=== PATIENT | female | born 1970 ===

== ENCOUNTER 2018-06-08 18:03 | Emergency (ER) | payer SELFPAY ==
[2018-06-08] MEDS ORDERED: Sodium Chloride 0.9% 1,000 ML IV STA (18:45)
[2018-06-08 18:47] LABS: BASO # 0.1 K/uL (0.0-0.2); BASO % 1.2 % (0.0-2.0); EOS # 0.1 K/uL (0.0-0.7); EOS % 2.1 % (0.0-4.0); HEMOGLOBIN 12.9 g/dL (11.0-16.0); LYMPH # 2.5 K/uL (1.0-4.3); LYMPH % 35.1 % (20.0-40.0); MEAN CELL VOLUME 82.2 fL (81.0-99.0); MEAN CORPUSCULAR HEMOGLOBIN 26.9 pg (27.0-31.0); MEAN CORPUSCULAR HGB CONC 32.8 g/dL (33.0-37.0); MEAN PLATELET VOLUME 7.6 fL (7.2-11.7); MONO # 0.5 K/uL (0.0-0.8); MONO % 6.8 % (0.0-10.0); NEUT # 3.9 K/uL (1.8-7.0); NEUT % 54.8 % (50.0-75.0); RBC 4.81 Mil/uL (3.80-5.20); RED CELL DISTRIBUTION WIDTH 13.9 % (11.5-14.5); WHITE BLOOD COUNT 7.2 K/uL (4.8-10.8)
--- NOTE | 2018-06-08 18:47 | C.PDOC ---
History Of Present Illness 47 y/o F c PMHx thyroid disease, remote history of ovarian cystectomy and C- section p/w abdominal pain x 3 hours. Pain is epigastric, severe, constant, recently began radiating to L shoulder. Reports 1 episode of nonbloody vomiting. Normal BM this morning, no bowel movement or flatus since then. Normal urination. Denies fever, chest pain, dyspnea. Time Seen by Provider: 06/08/18 18:38 Chief Complaint (Nursing): Abdominal Pain Past Medical History Vital Signs: Last Vital Signs Temp 98.4 F 06/08/18 18:17 Pulse 68 06/08/18 18:17 Resp 20 06/08/18 18:17 BP 125/60 06/08/18 18:17 Pulse Ox 100 06/08/18 18:17 - Medical History PMH: Arthritis, Hypothyroidism Denies: Chronic Kidney Disease Family History: States: Unknown Family Hx - Social History Hx Alcohol Use: No Hx Substance Use: No - Immunization History Hx Tetanus Toxoid Vaccination: Yes Hx Influenza Vaccination: Yes Hx Pneumococcal Vaccination: Yes Review Of Systems Except As Marked, All Systems Reviewed And Found Negative. Constitutional: Negative for: Fever Cardiovascular: Negative for: Chest Pain Physical Exam - Physical Exam Additional Physical Exam Comments: Constitutional: No acute distress. Head: Normocephalic. Atraumatic. Eyes: PERRL. ENT: Moist mucous membranes. Neck: Supple. Cardiovascular: Regular rate. Radial pulse 2+ bilaterally. Chest: No tenderness. Respiratory: Clear to auscultation bilaterally. GI: Soft. Epigiastrc/LUQ tenderness with guarding. Back: No CVA tenderness. Musculoskeletal: No tenderness or swelling of extremities. Skin: No rash. Neurologic: Alert, no focal deficit. ED Course And Treatment - Laboratory Results Result Diagrams: 06/08/18 19:17 06/08/18 19:31 O2 Sat by Pulse Oximetry: 100 - CT Scan/US CT A/P Other Rad Studies (CT/US): Read By Radiologist, Radiology Report Reviewed CT/US Interpretation: EXAM: CT Abdomen and Pelvis with IV contrast. CLINICAL HISTORY: Abdominal pain and vomiting. TECHNIQUE: Axial computed tomography im ages of the abdomen and pelvis with intravenous contrast. CONTRAST: With intravenous contrast. COMPARISON: None provided. FINDINGS: LUNG BASES: The lung bases appear clear. No pleural effusions are seen. LIVER: Normal in size. Minimal fluid is seen along the anterior superolateral aspect of the right hepatic lobe. GALLBLADDER AND BILE DUCTS: The gallbladder appears within normal limits. No radioopaque gallstones are seen. No biliary ductal dilatation is evident. PANCREAS: Unremarkable. SPLEEN: Unremarkable. ADRENAL GLANDS: Unremarkable. KIDNEYS, URETERS, AND BLADDER: The kidneys appear within normal limits. There is no hydronephrosis or hydroureter. No urinary calculi are seen. The urinary bladder is normal in size and configuration. STOMACH AND BOWEL: Unremarkable appearance of the stomach. No evidence of bowel obstruction. Mucosal wall edematous thickening is seen throughout the small intestine; and especially the colon, compatible with diffuse enterocolitis. Infectious or inflammatory etiologies are thought most likely. APPENDIX: No evidence of acute appendicitis on CT examination. PERITONEUM: Minimal right paracolic gutter fluid is identified. No free air. A small umbilical hernia is present which contains fat. LYMPH NODES: No lymphadenopathy is evident. REPRODUCTIVE: Unremarkable as visualized. VASCULATURE: No evidence of abdominal aortic ane urysm. BONES: No aggressive appearing osseous lesion. No acute osseous pathology evident. IMPRESSION: 1. Evidence of diffuse enterocolitis as described above. 2. Minimal right paracolic fluid is identified. 3. Minimal fluid is seen along the superior anterolateral right hepatic lobe. 4. A small umbilical hernia is present which contains fat. Medical Decision Making Medical Decision Making: Patient and family are comfortable to perform supportive care at home. CYBER LEGAL ADVISOR checked, no previous prescriptions, advised on risks of narcotics. F/u PMD and GI, return to ED for worsening pain, vomiting, dyspnea, or any other problem. Disposition - Disposition Referrals: Bernardo Bartholomew MD [Staff Provider] - Disposition: HOME/ ROUTINE Disposition Time: 23:00 Condition: STABLE Prescriptions: levoFLOXacin [Levaquin] 1 tab PO DAILY #10 tab Metronidazole [Flagyl] 500 mg PO Q8 #30 tab Ondansetron ODT [Zofran ODT] 4 mg PO Q8 #24 odt oxyCODONE/Acetaminophen [Percocet 5/325 mg Tab] 1 tab PO Q4H PRN #29 tab PRN Reason: Pain, Severe (8-10) Instructions: Colitis Forms: [facility] ([place]) - Clinical Impression Clinical Impression: Enterocolitis
[2018-06-08] MEDS ORDERED: Morphine 4 MG/ML VIAL ONE ×2 (18:53→22:01)
[2018-06-08] MEDS ORDERED: Sodium Chloride 0.9% 1,000 ML ONE (18:53)
[2018-06-08 19:17] LABS: INR 1.1; PROTHROMBIN TIME 11.6 SECONDS (9.7-12.2)
[2018-06-08 19:20] LABS: BASO % 0.4 % (0.0-2.0); EOS % 11.2 % (0.0-4.0); HEMOGLOBIN 14.2 g/dL (11.0-16.0); LYMPH # 1.2 K/uL (1.0-4.3); LYMPH % 13.6 % (20.0-40.0); MEAN CELL VOLUME 89.1 fL (81.0-99.0); MEAN CORPUSCULAR HEMOGLOBIN 30.4 pg (27.0-31.0); MEAN CORPUSCULAR HGB CONC 34.1 g/dL (33.0-37.0); MEAN PLATELET VOLUME 8.9 fL (7.2-11.7); MONO # 0.4 K/uL (0.0-0.8); MONO % 4.6 % (0.0-10.0); NEUT # 6.4 K/uL (1.8-7.0); NEUT % 70.2 % (50.0-75.0); RBC 4.68 Mil/uL (3.80-5.20); RED CELL DISTRIBUTION WIDTH 13.8 % (11.5-14.5); WHITE BLOOD COUNT 9.2 K/uL (4.8-10.8)
[2018-06-08 19:33] LABS: ALB/GLOB RATIO 1.6 (1.0-2.1); ALBUMIN 4.4 g/dL (3.5-5.0); ALT/SGPT 19 U/L (9-52); AST/SGOT 20 U/L (14-36); BLOOD UREA NITROGEN 13 mg/dL (7-17); CALCIUM 9.1 mg/dl (8.6-10.4); GFR NON-AFRICAN AMERICAN > 60
[2018-06-08 19:55] LABS: ALB/GLOB RATIO 1.4 (1.0-2.1); ALBUMIN 3.5 g/dL (3.5-5.0); ALT/SGPT 20 U/L (9-52); AST/SGOT 16 U/L (14-36); BLOOD UREA NITROGEN 12 mg/dL (7-17); CALCIUM 7.6 mg/dl (8.6-10.4); GFR NON-AFRICAN AMERICAN > 60
[2018-06-08 20:25] LABS: SQUAMOUS EPITHIAL 3 /hpf (0-5); URINE BACTERIA RARE (<OCC); URINE BILIRUBIN NEGATIVE (NEGATIVE); URINE BLOOD 2+ (NEGATIVE); URINE CLARITY Clear (Clear); URINE COLOR Yellow (YELLOW); URINE GLUCOSE (UA) NORMAL (Normal); URINE LEUKOCYTE ESTERASE NEG Leu/uL (Negative); URINE PROTEIN NEGATIVE (NEGATIVE); URINE UROBILINOGEN NORMAL mg/dL (0.2-1.0)
[2018-06-08 20:26] LABS: HCG,QUALITATIVE URINE NEGATIVE (NEGATIVE)
[2018-06-08] MEDS ORDERED: Iodixanol 320 MG/ML 200 ML BOTTLE IV ONE (22:01)
[2018-06-08 23:59] VITALS: BP 127/78; PULSE 74; RESP 17; TEMP 98.6; O2SAT 98
--- NOTE | 2018-06-10 08:59 | CT ---
Date of service: 06/08/2018 PROCEDURE: CT Abdomen and Pelvis with contrast HISTORY: Abdominal pain, vomiting COMPARISON: None. TECHNIQUE: Contrast dose: 100 mL Visipaque 320 Radiation dose: Total exam DLP = not available per the nuclear medicine chief technologist This CT exam was performed using one or more of the following dose reduction techniques: Automated exposure control, adjustment of the mA and/or kV according to patient size, and/or use of iterative reconstruction technique. FINDINGS: LOWER THORAX: Unremarkable. LIVER: Unremarkable. No gross lesion or ductal dilatation. GALLBLADDER AND BILE DUCTS: Unremarkable. PANCREAS: Unremarkable. No gross lesion or ductal dilatation. SPLEEN: Unremarkable. ADRENALS: Unremarkable. No mass. KIDNEYS AND URETERS: Unremarkable. No hydronephrosis. No solid mass. VASCULATURE: Unremarkable. No aortic aneurysm. No aortic atherosclerotic calcification or mural plaque present. BOWEL: No obstruction. Pancolonic wall thickening. APPENDIX: Wall thickening involving the appendix which is distended with air. PERITONEUM: Small bilateral fat containing inguinal hernias. Trace perihepatic ascites. Trace free pelvic fluid. No free air. LYMPH NODES: Unremarkable. No enlarged lymph nodes. BLADDER: Unremarkable. REPRODUCTIVE: 8 mm left ovarian follicle. 6 mm fat containing structure in the left ovary consistent with dermoid. BONES: No acute fracture. OTHER FINDINGS: None. IMPRESSION: Infectious/inflammatory malone colitis. Probable tiny left ovarian dermoid. Additional findings as above.
== END 2018-06-08 23:58 | disposition home or self-care (01) ==
LOC: C.ER 18:03
DX: K52.9 Noninfective gastroenteritis and colitis, unspecified (principal); E03.9 Hypothyroidism, unspecified
CPT/HCPCS: 74177; 80053; 81001; 84703; 85025; 85610; 85730; 86850; 86900; 87086; 96361; 96374; 96375; 96376; 99285; J2270; J2405; J7030; Q9966